=== PATIENT | female | born 1955 | race Caucasian/White ===

== ENCOUNTER 2017-07-02 06:46 | Day surgery (SDC) | payer OTHER ==
[~2017-07-02] VITALS: Ht 162.6 cm; Wt 67.3 kg
[~2017-07-02 06:46] MED LIST: ALBU8.5H8 IH; ASCO500 PO; ASPI81 PO; ATOR20TA86 PO; BECL8.7A7 PO; CALC-1174 PO; CYAN1TAB44 PO; FISH1CAP63 PO; GABA-529 PO; IBUP-2354 PO; VITA-380 PO
[2017-07-02] MEDS ORDERED: LIDOCAINE HCL 4% 50 ML SOLUTION TP ONE (06:47)
[2017-07-02] MEDS ORDERED: BENZOCAINE 20% 50 MCG/SPRAY 57 GM TP ONE (06:47)
[2017-07-02] MEDS ORDERED: LIDOCAINE HCL 2% 5 ML JELLY TP ONE (06:47)
[2017-07-02] MEDS ORDERED: EPINEPHrine 1:1,000 [1 MG/ML] AMP IM ONE (06:47)
[2017-07-02] MEDS ORDERED: SODIUM CHLORIDE 0.9% 1,000 ML IV ONE ×2 (06:59→07:00)
[2017-07-02] MEDS ORDERED: MIDAZOLAM HCL 2 MG/2 ML VIAL ONE (07:49)
[2017-07-02] MEDS ORDERED: FentaNYL CITRATE-PF 100 MCG/2 ML VIAL ONE (07:50)
[2017-07-02] MEDS ORDERED: MethylPREDNISolone SOD SUCC 125 MG/2 ML VIAL IVP ONE (09:00)
[2017-07-02] MEDS ORDERED: MethylPREDNISolone SOD SUCC 125 MG/2 ML VIAL ONE (09:12)
[2017-07-02] MEDS ORDERED: OXYGEN THERAPY IH SCH (20:00)
== END 2017-07-02 10:15 | disposition home or self-care (01) ==
LOC: SURGERY 06:46
PROVIDERS: ATTEND Internal Medicine Critical Care Medicine
DX: J38.4 Edema of larynx (principal); B37.0 Candidal stomatitis; I10 Essential (primary) hypertension; E78.5 Hyperlipidemia, unspecified; G47.00 Insomnia, unspecified; Z87.891 Personal history of nicotine dependence; Z72.89 Other problems related to lifestyle; Z90.89 Acquired absence of other organs; Z79.82 Long term (current) use of aspirin; Z79.1 Long term (current) use of non-steroidal anti-inflammatories (NSAID); Z79.899 Other long term (current) drug therapy
CPT/HCPCS: 31623; 31624; 71045; 87015; 87070; 87147; 87205; 87220; 88108; 88312; J0171; J2250; J2930; J3010; J7030